=== PATIENT | male | born 1965 | race Caucasian/White ===

== ENCOUNTER 2020-02-07 12:01 | Inpatient (IN) | payer OTHER ==
[2020-02-07 15:51] VITALS: BMI 22.1
[2020-02-07] MEDS ORDERED: NICOTINE POLACRILEX 2 MG GUM BUC PRN (15:53)
[2020-02-07] MEDS ORDERED: MAG HYDROX/AL HYDROX/SIMETH 30 ML UNIT-DOSE CUP PO PRN (15:53)
[2020-02-07] MEDS ORDERED: IBUPROFEN 400 MG TABLET (FP) PO PRN (15:53)
[2020-02-07] MEDS ORDERED: ACETAMINOPHEN 325 MG TABLET (FP) PO PRN ×2 (15:53)
[2020-02-07] MEDS ORDERED: MENTHOL/PHENOL 1 EACH UD MM PRN (15:53)
[2020-02-07] MEDS ORDERED: MAGNESIUM CITRATE 300 ML BOTTLE PO PRN (15:53)
[2020-02-07] MEDS ORDERED: METHADONE HCL 10 MG TABLET (FOR DETOX USE ONLY) PO ONE (15:53)
[2020-02-07] MEDS ORDERED: cloNIDine HCL 0.1 MG TABLET PO PRN (15:53)
[2020-02-07] MEDS ORDERED: BISMUTH SUBSALICYLATE 524 MG/30 ML UD PO PRN (15:53)
[2020-02-07] MEDS ORDERED: MAGNESIUM HYDROX 2400MG/30ML ORAL SUSPENSION 30 ML CUP PO PRN (15:53)
[2020-02-07] MEDS ORDERED: ONDANSETRON *ODT* 4 MG TABLET SL PRN (15:53)
[2020-02-07] MEDS: NICOTINE 7 MG/24 HOURS TOPICAL PATCH TD SCH (17:51)
[2020-02-07] MEDS: hydrOXYzine PAMOATE 25 MG CAPSULE (FP) PO SCH ×2 (18:35→22:52)
[2020-02-07] MEDS: THIAMINE HCL 100 MG TABLET (FP) PO SCH (22:52)
[2020-02-07] MEDS: MELATONIN 5 MG TABLETS PO SCH (22:52)
[2020-02-08] MEDS: hydrOXYzine PAMOATE 25 MG CAPSULE (FP) PO SCH ×5 (06:37→22:43)
[2020-02-08] MEDS ORDERED: METHADONE HCL 5 MG TABLET (FOR DETOX USE ONLY) ONE (09:33)
[2020-02-08] MEDS ORDERED: METHADONE HCL 10 MG TABLET (FOR DETOX USE ONLY) ONE (09:34)
[2020-02-08] MEDS ORDERED: METHADONE (DETOX) 20 MG, METHADONE (DETOX) 5 MG PO ONE (10:00)
[2020-02-08] MEDS: PRENATAL VITAMINS W/ FOLIC ACID TABLET (FP) PO SCH (10:32)
[2020-02-08] MEDS: NICOTINE 7 MG/24 HOURS TOPICAL PATCH TD SCH (10:34)
[2020-02-08 10:55] LABS: HEMOGLOBIN 12.9 GM/dL (11.7-16.9); MCH 31.8 pg (25.7-33.7); MCHC 33.8 g/dl (32.0-35.9); MEAN CELL VOLUME 94.1 fl (80-96); MEAN PLT VOLUME 9.8 fl (7.5-11.1); PLATELET COUNT 273 K/MM3 (134-434); RBC 4.04 M/mm3 (4.00-5.60); RDW 14.6 % (11.9-15.9); WHITE BLOOD COUNT 9.7 K/mm3 (4.0-10.0)
[2020-02-08 11:25] LABS: CALCIUM 8.5 mg/dL (8.5-10.1)
[2020-02-08 11:26] LABS: ALBUMIN 3.4 g/dl (3.4-5.0); BLOOD UREA NITROGEN 11.3 mg/dL (7-18)
[2020-02-08 11:29] LABS: CREATININE 0.9 mg/dL (0.55-1.3)
[2020-02-08 11:30] LABS: BILIRUBIN,TOTAL 1.4 mg/dL (0.2-1); TOT PROT 6.7 g/dl (6.4-8.2)
[2020-02-08 13:26] LABS: HIV INTERPRETATION NEGATIVE (NEGATIVE)
[2020-02-08] MEDS: diazePAM 5 MG TABLET PO PRN ×2 (14:52→22:43)
[2020-02-08] MEDS: METHOCARBAMOL 500 MG TABLET PO PRN (15:35)
[2020-02-08] MEDS: THIAMINE HCL 100 MG TABLET (FP) PO SCH (22:43)
[2020-02-08] MEDS: QUEtiapine FUMARATE 100 MG TABLET (FP) PO SCH (22:44)
[2020-02-08] MEDS: MELATONIN 5 MG TABLETS PO SCH (22:44)
[2020-02-09] MEDS: hydrOXYzine PAMOATE 25 MG CAPSULE (FP) PO SCH ×5 (07:05→22:40)
[2020-02-09] MEDS: diazePAM 5 MG TABLET PO PRN ×3 (07:06→13:58)
[2020-02-09] MEDS ORDERED: METHADONE HCL 10 MG TABLET (FOR DETOX USE ONLY) PO ONE (10:00)
[2020-02-09] MEDS: NICOTINE 7 MG/24 HOURS TOPICAL PATCH TD SCH (10:56)
[2020-02-09] MEDS: PRENATAL VITAMINS W/ FOLIC ACID TABLET (FP) PO SCH (10:56)
[2020-02-09] MEDS: METHOCARBAMOL 500 MG TABLET PO PRN (10:57)
[2020-02-09] MEDS: MELATONIN 5 MG TABLETS PO SCH (22:40)
[2020-02-09] MEDS: THIAMINE HCL 100 MG TABLET (FP) PO SCH (22:40)
[2020-02-09] MEDS: QUEtiapine FUMARATE 100 MG TABLET (FP) PO SCH (23:11)
[2020-02-10] MEDS: diazePAM 5 MG TABLET PO PRN ×3 (01:15→10:00)
[2020-02-10] MEDS: METHOCARBAMOL 500 MG TABLET PO PRN ×2 (01:16→07:31)
[2020-02-10] MEDS ORDERED: hydrOXYzine PAMOATE 50 MG CAPSULE (FP) PO ONE (03:02)
[2020-02-10] MEDS: hydrOXYzine PAMOATE 25 MG CAPSULE (FP) PO SCH ×3 (05:51→11:31)
[2020-02-10] MEDS ORDERED: MASKS NR ONE (07:21)
[2020-02-10] MEDS ORDERED: METHADONE HCL 5 MG TABLET (FOR DETOX USE ONLY) ONE (09:08)
[2020-02-10] MEDS ORDERED: METHADONE HCL 10 MG TABLET (FOR DETOX USE ONLY) ONE (09:08)
[2020-02-10] MEDS: PRENATAL VITAMINS W/ FOLIC ACID TABLET (FP) PO SCH (09:59)
[2020-02-10] MEDS: NICOTINE 7 MG/24 HOURS TOPICAL PATCH TD SCH (09:59)
[2020-02-10] MEDS ORDERED: METHADONE (DETOX) 10 MG, METHADONE (DETOX) 5 MG PO ONE (10:00)
[2020-02-10] MEDS ORDERED: CYPROHEPTADINE HCL 4 MG TABLET PO SCH (11:00)
[2020-02-10 11:16] VITALS: BP 137/87; PULSE 62; TEMP 97.3
[2020-02-11] MEDS ORDERED: METHADONE HCL 10 MG TABLET (FOR DETOX USE ONLY) PO ONE (10:00)
[2020-02-12] MEDS ORDERED: METHADONE HCL 5 MG TABLET (FOR DETOX USE ONLY) PO ONE (06:00)
== END 2020-02-10 12:40 | disposition left against medical advice (07) | DRG 770 ==
LOC: YASAS 12:01 → Y6N 16:51
PROVIDERS: ADMIT Allergy & Immunology; ATTEND Allergy & Immunology
PROC: HZ2ZZZZ Detoxification Services for Substance Abuse Treatment (ICD-10-PCS; principal; 2020-02-07)
DX: F11.23 Opioid dependence with withdrawal (principal); F13.230 Sedative, hypnotic or anxiolytic dependence with withdrawal, uncomplicated; F14.20 Cocaine dependence, uncomplicated; F16.10 Hallucinogen abuse, uncomplicated; F12.10 Cannabis abuse, uncomplicated; F17.210 Nicotine dependence, cigarettes, uncomplicated; F31.81 Bipolar II disorder; F43.10 Post-traumatic stress disorder, unspecified; F19.280 Other psychoactive substance dependence with psychoactive substance-induced anxiety disorder; F19.282 Other psychoactive substance dependence with psychoactive substance-induced sleep disorder; R01.1 Cardiac murmur, unspecified; Z62.810 Personal history of physical and sexual abuse in childhood; Z86.19 Personal history of other infectious and parasitic diseases; Z59.0 Homelessness
CPT/HCPCS: 36415; 80053; 85027; 86780; 87389; 93005; 93010; C9803; J0735; U0003

== ENCOUNTER 2022-03-14 09:55 | Inpatient (IN) | payer OTHER ==
[2022-03-14 10:43] VITALS: BMI 27.1
[2022-03-14] MEDS ORDERED: DICYCLOMINE HCL 10 MG CAPSULE PO PRN (12:00)
[2022-03-14] MEDS ORDERED: hydrOXYzine PAMOATE 25 MG CAPSULE (FP) PO PRN (12:00)
[2022-03-14] MEDS ORDERED: NALOXONE HCL (KLOXXADO) 8 MG SPRAY NS PRN (12:00)
[2022-03-14] MEDS ORDERED: BISMUTH SUBSALICYLATE 262 MG/15 ML BTL PO PRN (12:00)
[2022-03-14] MEDS ORDERED: IBUPROFEN 600 MG TABLET (FP) PO PRN (12:00)
[2022-03-14] MEDS ORDERED: NICOTINE 10 MG CARTRIDGE (INHALER) IH PRN (12:00)
[2022-03-14] MEDS ORDERED: ACETAMINOPHEN 325 MG TABLET (FP) PO PRN ×2 (12:00)
[2022-03-14] MEDS ORDERED: LOPERAMIDE HCL 2 MG CAPSULE PO PRN (12:00)
[2022-03-14] MEDS ORDERED: MAG HYDROX/AL HYDROX/SIMETH 30 ML UNIT-DOSE CUP PO PRN (12:00)
[2022-03-14] MEDS ORDERED: ONDANSETRON *ODT* 4 MG TABLET SL PRN (12:00)
[2022-03-14] MEDS ORDERED: MAGNESIUM HYDROX 2400MG/30ML ORAL SUSPENSION 30 ML CUP PO PRN (12:00)
[2022-03-14] MEDS ORDERED: POLYETHYLENE GLYCOL (HEALTHYLAX) 3350 17 GM PACKET PO PRN (12:00)
[2022-03-14] MEDS ORDERED: IBUPROFEN 400 MG TABLET (FP) PO PRN (12:00)
[2022-03-14] MEDS ORDERED: BENZOCAINE/MENTHOL (CHLORASEPTIC ) LOZENGE MM PRN (12:00)
[2022-03-14] MEDS ORDERED: cloNIDine HCL 0.1 MG TABLET PO PRN (12:03)
[2022-03-14] MEDS ORDERED: methaDONE HCL 10 MG TABLET (FOR DETOX USE ONLY) PO ONE (12:03)
[2022-03-14] MEDS ORDERED: methaDONE HCL 10 MG TABLET (FOR DETOX USE ONLY) ONE (13:49)
[2022-03-14] MEDS: diazePAM 5 MG TABLET PO PRN (15:25)
[2022-03-14 17:29] LABS: HEMATOCRIT 39.7 % (35.4-49); HEMOGLOBIN 12.9 GM/dL (11.7-16.9); MCH 29.7 pg (25.7-33.7); MCHC 32.6 g/dl (32.0-35.9); MEAN CELL VOLUME 91.2 fl (80-96); MEAN PLT VOLUME 9.2 fl (7.5-11.1); PLATELET COUNT 265 10^3/uL (134-434); RBC 4.35 M/mm3 (4.00-5.60); RDW 14.5 % (11.9-15.9); WHITE BLOOD COUNT 9.8 K/mm3 (4.0-10.0)
[2022-03-14 17:41] LABS: CALCIUM 8.9 mg/dL (8.5-10.1)
[2022-03-14 17:42] LABS: ALBUMIN 3.4 g/dl (3.4-5.0); BLOOD UREA NITROGEN 12.8 mg/dL (7-18)
[2022-03-14 17:45] LABS: CREATININE 0.8 mg/dL (0.55-1.3)
[2022-03-14 17:46] LABS: TOT PROT 6.6 g/dl (6.4-8.2)
[2022-03-14 17:47] LABS: BILIRUBIN,TOTAL 0.4 mg/dL (0.2-1)
[2022-03-14] MEDS: METHOCARBAMOL 500 MG TABLET PO PRN (22:37)
[2022-03-14] MEDS: QUEtiapine FUMARATE 100 MG TABLET (FP) PO SCH (22:38)
[2022-03-14] MEDS: THIAMINE HCL 100 MG TABLET (FP) PO SCH (22:38)
[2022-03-14] MEDS: MELATONIN 5 MG TABLETS PO SCH (22:39)
[2022-03-15] MEDS: PRENATAL VITAMINS W/ FOLIC ACID TABLET (FP) PO SCH (10:34)
[2022-03-15] MEDS: METHOCARBAMOL 500 MG TABLET PO PRN ×2 (10:39→18:16)
[2022-03-15] MEDS: diazePAM 5 MG TABLET PO PRN ×2 (10:39→16:09)
[2022-03-15] MEDS: THIAMINE HCL 100 MG TABLET (FP) PO SCH (22:33)
[2022-03-15] MEDS: MELATONIN 5 MG TABLETS PO SCH (22:33)
[2022-03-15] MEDS: QUEtiapine FUMARATE 100 MG TABLET (FP) PO SCH (22:33)
[2022-03-16] MEDS ORDERED: methaDONE HCL 10 MG TABLET (FOR DETOX USE ONLY) PO ONE (10:00)
[2022-03-16] MEDS: PRENATAL VITAMINS W/ FOLIC ACID TABLET (FP) PO SCH (10:15)
[2022-03-16] MEDS: METHOCARBAMOL 500 MG TABLET PO PRN (10:16)
[2022-03-16] MEDS: diazePAM 5 MG TABLET PO PRN (10:16)
[2022-03-16] MEDS: MELATONIN 5 MG TABLETS PO SCH (23:15)
[2022-03-16] MEDS: QUEtiapine FUMARATE 100 MG TABLET (FP) PO SCH (23:15)
[2022-03-16] MEDS: THIAMINE HCL 100 MG TABLET (FP) PO SCH (23:15)
[2022-03-17] MEDS: METHOCARBAMOL 500 MG TABLET PO PRN (10:36)
[2022-03-17] MEDS: diazePAM 5 MG TABLET PO PRN (10:36)
[2022-03-17] MEDS: PRENATAL VITAMINS W/ FOLIC ACID TABLET (FP) PO SCH (10:36)
[2022-03-17 20:01] LABS: PH,URINE 8.5 (5.0-8.0); URINE APPEARANCE CLEAR; URINE BILIRUBIN NEGATIVE (NEGATIVE); URINE COLOR YELLOW; URINE GLUCOSE (UA) NEGATIVE (NEGATIVE); URINE KETONE NEGATIVE (NEGATIVE); URINE LEUK ESTERASE NEGATIVE (NEGATIVE); URINE NITRITE NEGATIVE (NEGATIVE); URINE PROTEIN NEGATIVE (NEGATIVE)
[2022-03-17] MEDS: QUEtiapine FUMARATE 100 MG TABLET (FP) PO SCH ×2 (22:38→23:19)
[2022-03-17] MEDS: MELATONIN 5 MG TABLETS PO SCH ×2 (22:38→23:19)
[2022-03-17] MEDS: THIAMINE HCL 100 MG TABLET (FP) PO SCH ×2 (22:39→23:18)
[2022-03-18] MEDS ORDERED: methaDONE HCL 10 MG TABLET (FOR DETOX USE ONLY) PO ONE (10:00)
[2022-03-18] MEDS: PRENATAL VITAMINS W/ FOLIC ACID TABLET (FP) PO SCH (10:16)
[2022-03-18] MEDS: MELATONIN 5 MG TABLETS PO SCH (23:03)
[2022-03-18] MEDS: THIAMINE HCL 100 MG TABLET (FP) PO SCH (23:07)
[2022-03-18] MEDS: QUEtiapine FUMARATE 100 MG TABLET (FP) PO SCH (23:07)
[2022-03-19] MEDS: PRENATAL VITAMINS W/ FOLIC ACID TABLET (FP) PO SCH (09:35)
[2022-03-19 10:03] VITALS: BP 142/87; PULSE 65; RESP 16; TEMP 97
== END 2022-03-19 09:41 | disposition home or self-care (01) | DRG 773 ==
LOC: YASAS 09:55 → Y3N 12:15
PROVIDERS: ADMIT Allergy & Immunology; ATTEND Family Medicine
PROC: HZ2ZZZZ Detoxification Services for Substance Abuse Treatment (ICD-10-PCS; principal; 2022-03-14)
DX: F11.23 Opioid dependence with withdrawal (principal); F10.230 Alcohol dependence with withdrawal, uncomplicated; F14.20 Cocaine dependence, uncomplicated; F16.20 Hallucinogen dependence, uncomplicated; F12.20 Cannabis dependence, uncomplicated; F17.210 Nicotine dependence, cigarettes, uncomplicated; F31.9 Bipolar disorder, unspecified; F19.282 Other psychoactive substance dependence with psychoactive substance-induced sleep disorder; F19.24 Other psychoactive substance dependence with psychoactive substance-induced mood disorder; Z86.19 Personal history of other infectious and parasitic diseases; Z99.89 Dependence on other enabling machines and devices; Z28.310 Unvaccinated for COVID-19; Z28.9 Immunization not carried out for unspecified reason; Z88.0 Allergy status to penicillin; Z56.0 Unemployment, unspecified; Z59.00 Homelessness unspecified
CPT/HCPCS: 36415; 80053; 81003; 85027; 86780; 87811; C9803-CS; U0003; U0005